=== PATIENT | female | born 1990 | race Two or more races ===

== ENCOUNTER → 2024-10-27 | Outpatient (CLI) | payer MEDICAID, SELFPAY ==
--- NOTE | 2024-10-27 09:00 | XR_ITS ---
Examination: MRI lumbar spine without contrast Date and time of exam: October 27, 0932 hrs. Indications: Low back pain radiating down both legs 15 years Technique: Multiple MRI axial and sagittal sections lumbar spine. Sagittal T2-weighted images, TR 3500, TE 118 T1 weighted transverse sections, TR 688 T8.5, T2-weighted sagittal sections T1 weighted sagittal sections TR 621, TE 30 T2 axial sections, TR 4, 190, TE 84. Findings: Transitional S1 vertebral body Diffuse lumbar disc desiccation. No lumbar fracture. L5-S1 4 mm central lumbar disc bulge contiguous with the left S1 nerve root More cephalad levels are unremarkable Impression: L5-S1 4 mm central lumbar disc bulge contiguous with the left S1 nerve root.
== END | disposition home or self-care (01) ==
PROVIDERS: Referring Provider Student in an Organized Health Care Education/Training Program; Visit Provider Student in an Organized Health Care Education/Training Program
DX: M51.370 Other intervertebral disc degeneration, lumbosacral region with discogenic back pain only (principal)
CPT/HCPCS: 72148

== ENCOUNTER 2025-02-01 08:46 | Emergency (ER) | payer MEDICAID, SELFPAY ==
[2025-02-01 09:11] VITALS: BP 116/74; PULSE 74; RESP 18; TEMP 37.2; O2SAT 99; BMI 39.9
--- NOTE | 2025-02-01 09:30 | EDNOTE_ITS ---
Lower Extremity Injury RME/HPI General Chief Complaint: Ankle/Foot Injury Stated Complaint: S/P FALL R TOE INJURY Time Seen by Provider: 02/01/25 08:53 Arrival date/time: 02/01/25 08:46 RME / HPI RME / HPI Narrative: 34-year-old female who fell yesterday night when she was walking off her step twisted her ankle and hit the top of her foot now has increased pain there. Denies any numbness, tingling, weakness, fever Related Data Previous Rx's ?Medication ?Instructions ?Recorded albuterol sulfate 90 mcg/actuation 2 puff inhalation Q 6H PRN 10/29/19 aerosol inhaler shortness of breath or wheez ing #8.5 grams tramadol 50 mg tablet 50 mg PO Q8H PRN pain #10 ta bs 04/30/22 polyethylene glycol 3350 17 17 g PO BID 7 days #119 gr ams 09/03/22 gram/dose oral powder (Miralax) acetaminophen 300 mg-codeine 30 mg 1 tab PO Q6H PRN pa in #14 tabs 02/01/25 tablet Allergies Allergy/AdvReac Type Severity Reaction Status Date / Time hydrocodone Allergy Mild HIVES Verified 02/01/25 08:48 NSAIDS (Non-Steroidal Allergy Verified 02/01/25 08:48 Anti-Inflamma ED Exam Narrative Physical exam: Constitutional: Vital Signs Reviewed. Well appearing. No acute distress. Not toxic appearing. Head: Normocephalic, atraumatic. Eyes: Conjunctiva clear. ENT: Mucous membranes moist. Neck: Trachea midline. Normal range of motion. No nuchal rigidity. Respiratory: Normal effort. No respiratory distress or accessory muscle use. Neuro: Alert and oriented. Speech normal. No focal gross motor or sensory deficits observed. Skin: Warm, dry, normal color. Extremity: Positive tenderness to palpation, ecchymosis, edema noted to dorsal medial aspect of right foot adjacent to the first MTP joint, first metatarsal, and second metatarsal. Cap refill less than 2 seconds for 1st and 2nd toes. Compartments are soft. Mild limited range of motion and strength 4+ out of 5 secondary to pain for left foot, toes, ankle. [place] pedis pulse 2+ regular rate and rhythm. No proximal fibular head tenderness. Psych: Pleasant. Normal affect. Cooperative. Course Quality Measures none Orders Category Date Time Status Crutches .NOW Care 02/01/25 12:34 Completed Splint / Immobilizer STAT Care 02/01/25 11:42 Completed XR ankle comp RT min 3V Stat Exams 02/01/25 09:33 Completed XR foot comp RT min 3V Stat Exams 02/01/25 09:33 Completed Acetaminophen Tab [Tylenol Tab] Med 02/01/25 09:54 Discontinued 650 mg PO X1 ONE Lidocaine 5% Patch Med 02/01/25 09:34 Discontinued 1 patch TOP X1 ONE Morphine* Inj Med 02/01/25 11:39 Discontinued 4 mg IM X1 ONE Ondansetron Odt [Zofran Odt] Med 02/01/25 09:33 Discontinued 4 mg PO X1 ONE Ondansetron Odt [Zofran Odt] Med 02/01/25 11:39 Discontinued 4 mg PO X1 ONE Vital Signs Vital signs: Vital Signs Temperature 98.9 F 02/01/25 09:11 Pulse Rate 74 02/01/25 09:11 Respiratory Rate 18 02/01/25 09:11 Blood Pressure 116/74 02/01/25 09:11 Pulse Oximetry (%) 99 02/01/25 09:11 Oxygen Delivery Method Room Air 02/01/25 09:11 Extremity Injury, Lower MDM Narrative MDM Narrative:: Concern for acute fracture proximal phalanx first digit without displacement Digit remains distally neurovasc intact with soft compartments No infectious etiology No open wounds Plan for flat soled shoe, radha tape, RICE therapy, follow-up with PMD for referral to orthopedic or podiatry doctor in 1 to 2 days, strict ER return precautions advised Patient data External records reviewed:: None Clinical information provided by:: patient Social determinants that could affect healthcare access:: none Patient has the following chronic illnesses:: As noted How is presenting disease/condition affected by chronic disease/condition?: no c hronic disease Evaluation data The following diagnostics were reviewed and interpreted by me:: radiology exam(s) Lab and/or radiology exams considered but not ordered:: Additional Labs and radiology considered, but not ordered as they were not clinically indicated at this time. Interpretation Summary: As noted Medications / Prescriptions Medications or Prescriptions considered but not ordered:: I ordered medications based on the patient?s clinical needs and assessment, as documented in the chart. For medications not prescribed, they were not indicated for the patient's current condition, and I determined they were unnecessary at this time to avoid potential risks or complications. Medication administrations:: Medication Administration History Discontinued Medications Acetaminophen (Acetaminophen 325 Mg Tablet) 650 mg PO X1 ONE Stop: 02/01/25 09:55 Last Admin: 02/01/25 10:34 Dose: 650 mg Documented By: Lidocaine (Lidocaine 5% 1 Patch) 1 patch TOP X1 ONE Stop: 02/01/25 09:35 Last Admin: 02/01/25 09:45 Dose: 1 patch Documented By: Comments: placed on right foot Morphine Sulfate (Morphine Sulf Inj 4 Mg/Ml Vial) 4 mg IM X1 ONE Stop: 02/01/25 11:40 Last Admin: 02/01/25 13:25 Dose: Not Given Documented By: Non-Admin Reason: Patient Refused Ondansetron HCl (Ondansetron Odt 4 Mg Tabrap) 4 mg PO X1 ONE; Protocol Stop: 02/01/25 09:34 Last Admin: 02/01/25 09:42 Dose: 4 mg Documented By: Ondansetron HCl (Ondansetron Odt 4 Mg Tabrap) 4 mg PO X1 ONE; Protocol Stop: 02/01/25 11:40 Last Admin: 02/01/25 13:48 Dose: Not Given Documented By: Non-Admin Reason: Patient Refused As noted Consultations Consultation(s) initiated? (list below): No Diagnosis Extremity Injury, Lower Differential Diagnosis: ankle sprain and strain, fracture of toe and other Most likely diagnosis given after review of the tests above:: Toe fracture Admission Indicated Admission indicated?: not indicated Admission Request Was there a request for admission?: No Disposition Plan Disposition Plan: Discharge Discharge Attestation Discharge Attestation: The patient and all family members were given an opportunity to ask questions and understood the discharge instructions. Discharge instructions specifically effects, indications for sooner follow up or return to the emergency department, and the expected course of current diagnosis. Patient condition: Stable Discharge Plan Plan Patient Disposition: HOME (Self Care) Patient condition on transfer: Stable Prescriptions/Referrals Prescriptions/Med Rec: New acetaminophen-codeine 300-30 mg tablet 1 tab PO Q6H PRN (Reason: pain) Qty: 14 0RF No Action albuterol sulfate 90 mcg/actuation HFA aerosol inhaler 2 puff IH Q6H PRN (Reason: shortness of breath or wheezing) Qty: 8.5 0RF polyethylene glycol 3350 [Miralax] 17 gram/dose powder 17 g PO BID 7 Days Qty: 119 1RF Rx Instructions: And then 17 g once a day for 1 week. Then see your primary care physician. tramadol 50 mg tablet 50 mg PO Q8H PRN (Reason: pain) Qty: 10 0RF Referrals: Darin Schwartz MD [Primary Care Provider] - In 1 week Problem List Clinical Impression: Closed fracture of toe Patient/Caregiver Discharge Instructions Education Materials: ED Fracture, Toe, Closed Additional Instructions: Follow up with your primary medical doctor and an orthopedic doctor or fire sprinkler inspector within 48 hours. Return to the Emergency Room immediately for any new, worsening, continuing symptoms or any concerns at all. Return to the Emergency Room within 48 hours if you are unable to follow up with your primary medical doctor and an orthopedic doctor or a fire sprinkler inspector within 48 hours. Print Language: Bengali Stand Alone Forms: Brie Award Info., Work/School Release, Patient Portal Info Letter PA/CODING VALIDATOR Supervising Physician PA/CODING VALIDATOR Supervising Physician: Dr. Hardiwck
--- NOTE | 2025-02-01 09:33 | XR_ITS ---
Examination: Foot, right 3 views, 3 views Technique: AP, oblique, lateral views foot, 3 views Date and time of exam: February 01, 2025, 1014 hours INDICATIONS: Patient fell today with injury to the foot, foot pain. FINDINGS: Acute fracture distal aspect proximal phalanx first digit intra-articular, without significant displacement No foreign body IMPRESSION: Acute fracture proximal phalanx first digit
--- NOTE | 2025-02-01 09:33 | XR_ITS ---
EXAMINATION: Ankle, right 3 views. Technique: Ankle AP, oblique, lateral 3 views Date and time of exam: February 01, 2025, 10:17 a.m. INDICATIONS: Patient fell today with into the ankle, ankle pain FINDINGS: No ankle fracture or dislocation No foreign body IMPRESSION: No acute fracture
[2025-02-01] MEDS: ONDANSETRON ODT 4 MG TABRAP PO (09:42)
[2025-02-01] MEDS: LIDOCAINE 5% 1 PATCH TOP (09:45)
[2025-02-01] MEDS: ACETAMINOPHEN 325 MG TABLET 650 MG PO (10:34)
== END 2025-02-01 14:08 | disposition home or self-care (01) ==
PROVIDERS: Emergency Provider Physician Assistant; PCP Obstetrics & Gynecology
DX: S92.414A Nondisplaced fracture of proximal phalanx of right great toe, initial encounter for closed fracture (principal); X50.1XXA Overexertion from prolonged static or awkward postures, initial encounter; Y93.01 Activity, walking, marching and hiking
CPT/HCPCS: 29515; 73610; 73630; 99282; J3490; Q0162; A9270

== ENCOUNTER → 2025-02-09 | Outpatient (CLI) | payer MEDICAID, SELFPAY ==
--- NOTE | 2025-02-09 09:45 | XR_ITS ---
Examination: MRI brain without intravenous contrast. Date and time of exam: February 09, 2025, 0944 hours, comparison December 30, 2022 INDICATIONS: Headaches blurred vision beginning 15 years post head injury Technique: Multiple axial and sagittal images of the brain obtained. Siemens high-resolution 1.5 Mariaelena short bore scanners utilized. Sagittal sections, T1-weighted, TR 500, TE 14, are performed. Axial sections proton-density and T2-weighted have been obtained. Inversion recovery axial images, TR 9, 260, TE 111, TI 2500. Diffusion weighted images, axial sections, TR 4800, TE 128, B value 1000 Axial sections, ADC map, TR 4800, TE 128 Findings: Enlargement of the sella turcica is not present. The optic chiasm and infundibular are not remarkable. Prepontine and interpeduncular cisterns are not enlarged. There is no localized enlargement of the medulla or frankie. Fourth ventricle and cerebellar tonsils appear normal in position. No subacute area of hemorrhage density is seen. Mass in the cerebellopontine angle region is not evident. Globes symmetrical. Orbital musculature including medial lateral rectus muscles do not exhibit abnormality. Diffusion-weighted images demonstrate no focus of restricted diffusion. Increased white matter signal evident, 3 punctate foci increased signal in the frontoparietal white matter on the left FLAIR image 17 Mass effect upon the ventricular system is not identified. Impression: Scattered punctate foci increased signal in the left frontoparietal white matter, FLAIR image 17, consider demyelinating disease
== END | disposition home or self-care (01) ==
PROVIDERS: PCP Obstetrics & Gynecology; Referring Provider Psychiatry & Neurology Neurology; Visit Provider Psychiatry & Neurology Neurology
DX: R90.82 White matter disease, unspecified (principal); G43.709 Chronic migraine without aura, not intractable, without status migrainosus
CPT/HCPCS: 70551